=== PATIENT | female | born 1995 | race Asian ===

== ENCOUNTER 2018-01-05 08:39 | Inpatient (IN) | payer OTHER ==
[2018-01-05] VITALS (42 sets, daily range): BP systolic 104–126; BP diastolic 57–85; PULSE 68–113; TEMP 98.5–99.6
[~2018-01-05] VITALS: Ht 149.9 cm; Wt 57.7 kg
[~2018-01-05 08:39] MED LIST: BACTRIM DS 8001 TAB PO; CEPHALEXIN500 M1 PO; DIFLUCAN150 MG PO; FLAGYL500 MG PO; NORCO 325 MG-51 TAB PO
[2018-01-05] MEDS ORDERED: NATURAL IRON65 MG PO (09:05)
[2018-01-05 10:01] LABS: HEMOGLOBIN 12.1 g/dl (12.5-16.0); MEAN CELL VOLUME 95 fl (80.0-100.0); MEAN CORPUSCULAR HEMOGLOBIN 33 pg (27.0-31.0); MEAN CORPUSCULAR HGB CONC 35 g/dl (33.0-37.0); MEAN PLATELET VOLUME 12.6 fl (7.4-10.4); PLATELET COUNT 204 K/mm3 (130-400); RED BLOOD COUNT 3.64 M/mm3 (4.10-5.30); REDCELL DISTRIBUTION WIDTH-CV 13.2 % (11.5-14.5)
[2018-01-05 10:06] LABS: HEMATOCRIT 34.5 % (37.0-47.0)
[2018-01-05 10:34] LABS: BAND 5 % (0-10); LYMPHOCYTE 30 % (20.0-51.0); NEUTROPHILS 59 % (42.0-75.2); PLATELET ESTIMATE NORMAL (NORMAL)
[2018-01-06] VITALS (42 sets, daily range): BP systolic 86–152; BP diastolic 50–83; PULSE 64–144; TEMP 97.8–99.2
[2018-01-07 02:05] VITALS: BP 89/54; PULSE 105; TEMP 98.2
[2018-01-07 07:35] VITALS: BP 94/60; PULSE 101; TEMP 97.9
[2018-01-07] MEDS ORDERED: IBU600 MG PO (07:36)
[2018-01-07 07:47] LABS: HEMATOCRIT 18.3 % (37.0-47.0); HEMOGLOBIN 6.4 g/dl (12.5-16.0)
[2018-01-07 11:50] VITALS: BP 85/46; PULSE 100; TEMP 98.1
[2018-01-07 16:15] VITALS: BP 90/52; PULSE 95; TEMP 98.3
[2018-01-07 19:54] VITALS: BP 92/52; PULSE 121; TEMP 98.5
[2018-01-08 00:33] VITALS: PULSE 116
[2018-01-08 06:51] LABS: HEMATOCRIT 17.9 % (37.0-47.0)
[2018-01-08 08:45] VITALS: BP 102/56; PULSE 94; TEMP 97.7
== END 2018-01-08 11:15 | disposition home or self-care (01) | DRG 767 ==
LOC: LDRO 08:39 → LDR 09:15 → OB 01-06 10:43
PROVIDERS: Obstetrics & Gynecology
PROC: 10E0XZZ Delivery of Products of Conception, External Approach (ICD-10-PCS; principal; 2018-01-06)
PROC: 10D17Z9 Manual Extraction of Products of Conception, Retained, Via Natural or Artificial Opening (ICD-10-PCS; 2018-01-06)
PROC: 0KQM0ZZ Repair Perineum Muscle, Open Approach (ICD-10-PCS; 2018-01-06)
DX: O70.1 Second degree perineal laceration during delivery (principal); Z37.0 Single live birth; O72.2 Delayed and secondary postpartum hemorrhage; D62 Acute posthemorrhagic anemia; Z3A.41 41 weeks gestation of pregnancy; Z22.330 Carrier of Group B streptococcus; O43.123 Velamentous insertion of umbilical cord, third trimester; O69.1XX0 Labor and delivery complicated by cord around neck, with compression, not applicable or unspecified; O90.81 Anemia of the puerperium
CPT/HCPCS: J0290; J2210; J2540; J2590; J2795; J7120

== ENCOUNTER → 2018-11-02 | Outpatient (CLI) | payer OTHER ==
[~2018-11-02] MED LIST changes: +IBU600 MG PO; +NATURAL IRON65 MG PO
== END ==
LOC: COL.RAD 13:13
DX: K80.20 Calculus of gallbladder without cholecystitis without obstruction (principal)